=== PATIENT | female | born 1995 | race Caucasian/White ===

== ENCOUNTER 2017-07-18 14:20 | Inpatient (IN) | payer MEDICAID ==
[2017-07-18] MEDS ORDERED: Sodium Chloride 0.9% 10 ML Syringe FLUSH PRN (15:23)
[2017-07-18] MEDS ORDERED: diphenhydrAMINE 50 MG/ML SDV IVPUSH ONE (16:56)
[2017-07-18] MEDS ORDERED: diphenhydrAMINE 50 MG/ML SDV ONE (16:58)
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
[2017-07-18] MEDS: Lactated Ringers 1,000 ML IV SCH ×4 (17:03→20:23)
[2017-07-18] MEDS ORDERED: diphenhydrAMINE 50 MG/ML SDV IVPUSH PRN (18:18)
[2017-07-18] MEDS ORDERED: fentaNYL 100 MCG/2 ML SDV EPIDUR PRN (18:18)
[2017-07-18] MEDS ORDERED: ePHEDrine 50 MG/ML SDV IVPUSH PRN (18:18)
[2017-07-18] MEDS ORDERED: Ondansetron 4 MG/2 ML SDV IVPUSH PRN (18:18)
[2017-07-18] MEDS: Bupivacaine/fentaNYL/NS 100 ML Bag EPIDUR SCH (18:52)
--- NOTE | 2017-07-18 19:01 | PCM.PREANE ---
Preanesthetic Assessment - Anesthesia/Transfusion/Family Hx Anesthesia History: Prior Anesthesia Without Reaction Family History of Anesthesia Reaction: No Transfusion History: No Prior Transfusion(s) - Review of Systems General: No Symptoms Pulmonary: No Symptoms Cardiovascular: No Symptoms Gastrointestinal: No Symptoms, Other (Heartburn mostly towards the end of the .) Neurological: No Symptoms Other: Reports: None - Physical Assessment O2 Sat by Pulse Oximetry: 98 Respiratory Rate: 16 Vital Signs: Last Vital Signs Temp 36.8 C 07/18/17 14:36 Pulse 85 07/18/17 14:36 Resp 16 07/18/17 14:36 BP 139/89 07/18/17 14:36 Pulse Ox Height: 1.78 m Weight: 86.409 kg ASA Class: 2 Mental Status: Alert & Oriented x3 Airway Class: Mallampati = 1 Dentition: Reports: Normal Dentition Thyro-Mental Finger Breadths: 3 Mouth Opening Finger Breadths: 3 ROM/Head Extension: Full Lungs: Clear to Auscultation, Normal Respiratory Effort Cardiovascular: Regular Rate, Regular Rhythm - Lab Values: Laboratory Last Values WBC 10.21 K/mm3 (3.98-10.04) H 07/18/17 15:50 RBC 3.91 M/mm3 (3.98-5.22) L 07/18/17 15:50 Hgb 10.8 gm/L (11.2-15.7) L 07/18/17 15:50 Hct 34.2 % (34.1-44.9) 07/18/17 15:50 MCV 87.5 fl (79.4-94.8) 07/18/17 15:50 MCH 27.6 pg (25.6-32.2) 07/18/17 15:50 MCHC 31.6 g/dl (32.2-35.5) L 07/18/17 15:50 RDW Std Deviation 47.8 fL (36.4-46.3) H 07/18/17 15:50 Plt Count 259 K/mm3 (182-369) 07/18/17 15:50 MPV 10.1 fl (9.4-12.3) 07/18/17 15:50 Neut % (Auto) 67.7 % (34.0-71.1) 07/18/17 15:50 Lymph % (Auto) 18.8 % (19.3-51.7) L 07/18/17 15:50 [place] % (Auto) 11.3 % (4.7-12.5) 07/18/17 15:50 Eos % (Auto) 1.7 (0.7-5.8) 07/18/17 15:50 Baso % (Auto) 0.3 % (0.1-1.2) 07/18/17 15:50 Neut # (Auto) 6.92 K/mm3 (1.56-6.13) H 07/18/17 15:50 Lymph # (Auto) 1.92 K/mm3 (1.18-3.74) 07/18/17 15:50 [place] # (Auto) 1.15 K/mm3 (0.24-0.36) H 07/18/17 15:50 Eos # (Auto) 0.17 K/mm3 (0.04-0.36) 07/18/17 15:50 Baso # (Auto) 0.03 K/mm3 (0.01-0.08) 07/18/17 15:50 Membrane Rupture Positive H 07/18/17 14:45 Blood Type O POSITIVE 07/18/17 15:50 Gel Antibody Screen Negative 07/18/17 15:50 - Allergies Allergies/Adverse Reactions: Allergies Allergy/AdvReac Type Severity Reaction Status Date / Time Penicillins Allergy Hives Verified 07/18/17 14:52 Vancomycin Allergy Intermediate Rash Uncoded 07/18/17 17:01 - Acknowledgements Anesthesia Type Planned: Epidural Pt an Appropriate Candidate for the Planned Anesthesia: Yes Alternatives and Risks of Anesthesia Discussed w Pt/Guardian: Yes Pt/Guardian Understands and Agrees with Anesthesia Plan: Yes PreAnesthesia Questionnaire - Past Health History Medical/Surgical History: Denies Medical/Surgical History Genitourinary History: Reports: Renal Calculus, Other (See Below) Other Genitourinary History: Renal stents placed 04/10 and 05/08 and since removed. Urerter surgery as a child. 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 [No Known Home Meds] 04/13/16 [History] - CURRENT (IN HOUSE) MEDS Current Meds: Current Medications Diphenhydramine HCl (Benadryl) 25 mg IVPUSH Q6H PRN PRN Reason: Pruritis Ephedrine Sulfate (Ephedrine Sulfate) 5 mg IVPUSH ASDIRECTED PRN PRN Reason: Hypotension Fentanyl (Sublimaze) 100 mcg EPIDUR ONETIME PRN PRN Reason: Pain Last Admin: 07/18/17 18:53 Dose: 100 mcg Fentanyl/Bupivacaine HCl (Fentanyl/Bupivacaine/Ns 2 Mcg-0.125% 100 Ml) 100 ml EPIDUR ASDIRECTED DORA Last Admin: 07/18/17 18:52 Dose: 100 ml Lactated Ringer's (Ringers, Lactated) 1,000 mls @ 100 mls/hr IV ASDIRECTED DORA Last Admin: 07/18/17 18:11 Dose: 100 mls/hr Oxytocin 20 unit/ Lactated (Ringer's) 1,002 mls @ 500 mls/hr IV TITRATE DORA; Protocol Vancomycin HCl 1 gm/ Sodium (Chloride) 250 mls @ 250 mls/hr IV Q12H DOAR Last Admin: 07/18/17 15:57 Dose: 250 mls/hr Ondansetron HCl (Zofran) 4 mg IVPUSH ONETIME PRN PRN Reason: Nausea/Vomiting Sodium Chloride (Saline Flush) 10 ml FLUSH ASDIRECTED PRN PRN Reason: Keep Vein Open Discontinued Medications Diphenhydramine HCl (Benadryl) 25 mg IVPUSH ONETIME ONE Stop: 07/18/17 16:57 Last Admin: 07/18/17 17:00 Dose: 25 mg Diphenhydramine HCl (Benadryl) Confirm Administered Dose 50 mg .ROUTE .STK-MED ONE Stop: 07/18/17 16:59
--- NOTE | 2017-07-18 20:19 | PCM.PNLD ---
Labor Progress Note - VS & Meds Vital Signs: Last Vital Signs Temp 36.8 C 07/18/17 14:36 Pulse 85 07/18/17 14:36 Resp 16 07/18/17 19:01 BP 139/89 07/18/17 14:36 Pulse Ox 98 07/18/17 19:01 Active Medications: Current Medications Diphenhydramine HCl (Benadryl) 25 mg IVPUSH Q6H PRN PRN Reason: Pruritis Ephedrine Sulfate (Ephedrine Sulfate) 5 mg IVPUSH ASDIRECTED PRN PRN Reason: Hypotension Fentanyl (Sublimaze) 100 mcg EPIDUR ONETIME PRN PRN Reason: Pain Last Admin: 07/18/17 18:53 Dose: 100 mcg Fentanyl/Bupivacaine HCl (Fentanyl/Bupivacaine/Ns 2 Mcg-0.125% 100 Ml) 100 ml EPIDUR ASDIRECTED DORA Last Admin: 07/18/17 18:52 Dose: 100 ml Lactated Ringer's (Ringers, Lactated) 1,000 mls @ 100 mls/hr IV ASDIRECTED DORA Last Admin: 07/18/17 18:11 Dose: 100 mls/hr Oxytocin 20 unit/ Lactated (Ringer's) 1,002 mls @ 500 mls/hr IV TITRATE DORA; Protocol Vancomycin HCl 1 gm/ Sodium (Chloride) 250 mls @ 250 mls/hr IV Q12H DORA Last Admin: 07/18/17 15:57 Dose: 250 mls/hr Oxytocin 10 unit/ Lactated (Ringer's) 1,001 mls @ 12.01 mls/hr IV TITRATE DORA; Protocol Ondansetron HCl (Zofran) 4 mg IVPUSH ONETIME PRN PRN Reason: Nausea/Vomiting Sodium Chloride (Saline Flush) 10 ml FLUSH ASDIRECTED PRN PRN Reason: Keep Vein Open Discontinued Medications Diphenhydramine HCl (Benadryl) 25 mg IVPUSH ONETIME ONE Stop: 07/18/17 16:57 Last Admin: 07/18/17 17:00 Dose: 25 mg Diphenhydramine HCl (Benadryl) Confirm Administered Dose 50 mg .ROUTE .STK-MED ONE Stop: 07/18/17 16:59 - Uterine Contractions Contraction Frequency (min): 3 Contraction Duration (sec): 60 Contraction Intensity: Moderate to Strong Uterine Resting Tone: Soft - Monitoring Heart Rate (FHR) Per Doppler: 125 Heart Rate (FHR) Variability: Moderate (6-25 bmp) Accelerations: Present, 15x15 Strip Review: Category I - Vaginal Exam Dilation (cm): 3 Effacement (Percent): 80 Station: -2 Cervical Position: Midposition - Labor Progress (Free Text) Labor Progress: Minimal change. Epidural in place. Comfortable. Received sign out from Dr. Barron. Will assume care now. Will initiate pitocin. Anticipate .
[2017-07-19] MEDS: Bupivacaine/fentaNYL/NS 100 ML Bag EPIDUR SCH (01:07)
[2017-07-19] MEDS: Lactated Ringers 1,000 ML IV SCH ×2 (01:31→06:13)
[2017-07-19] MEDS ORDERED: Bupivacaine 0.25% 10 ML SDV ONE (02:00)
[2017-07-19] MEDS ORDERED: fentaNYL 100 MCG/2 ML SDV ONE (04:40)
--- NOTE | 2017-07-19 06:15 | PCM.PNLD ---
Labor Progress Note - VS & Meds Vital Signs: Last Vital Signs Temp 36.8 C 07/18/17 14:36 Pulse 85 07/18/17 14:36 Resp 16 07/18/17 19:01 BP 139/89 07/18/17 14:36 Pulse Ox 98 07/18/17 19:01 Active Medications: Current Medications Diphenhydramine HCl (Benadryl) 25 mg IVPUSH Q6H PRN PRN Reason: Pruritis Last Admin: 07/19/17 05:27 Dose: 25 mg Ephedrine Sulfate (Ephedrine Sulfate) 5 mg IVPUSH ASDIRECTED PRN PRN Reason: Hypotension Fentanyl (Sublimaze) 100 mcg EPIDUR ONETIME PRN PRN Reason: Pain Last Admin: 07/18/17 18:53 Dose: 100 mcg Fentanyl/Bupivacaine HCl (Fentanyl/Bupivacaine/Ns 2 Mcg-0.125% 100 Ml) 100 ml EPIDUR ASDIRECTED DORA Last Admin: 07/19/17 01:07 Dose: 100 ml Lactated Ringer's (Ringers, Lactated) 1,000 mls @ 100 mls/hr IV ASDIRECTED DORA Last Admin: 07/19/17 06:13 Dose: 100 mls/hr Oxytocin 20 unit/ Lactated (Ringer's) 1,002 mls @ 500 mls/hr IV TITRATE DORA; Protocol Vancomycin HCl 1 gm/ Sodium (Chloride) 250 mls @ 250 mls/hr IV Q12H DORA Last Admin: 07/19/17 03:46 Dose: 175 mls/hr Oxytocin 10 unit/ Lactated (Ringer's) 1,001 mls @ 12.01 mls/hr IV TITRATE DORA; Protocol Last Titration: 07/19/17 02:16 Dose: 14 munits/min, 84.08 mls/hr Ondansetron HCl (Zofran) 4 mg IVPUSH ONETIME PRN PRN Reason: Nausea/Vomiting Sodium Chloride (Saline Flush) 10 ml FLUSH ASDIRECTED PRN PRN Reason: Keep Vein Open Discontinued Medications Diphenhydramine HCl (Benadryl) 25 mg IVPUSH ONETIME ONE Stop: 07/18/17 16:57 Last Admin: 07/18/17 17:00 Dose: 25 mg Diphenhydramine HCl (Benadryl) Confirm Administered Dose 50 mg .ROUTE .STK-MED ONE Stop: 07/18/17 16:59 Fentanyl (Sublimaze) Confirm Administered Dose 100 mcg .ROUTE .STK-MED ONE Stop: 07/19/17 04:41 Last Admin: 07/19/17 04:46 Dose: 100 mcg - Uterine Contractions Contraction Frequency (min): 3 Contraction Duration (sec): 60 Contraction Intensity: Moderate to Strong Uterine Resting Tone: Soft - Monitoring Heart Rate (FHR) Per Doppler: 125 Heart Rate (FHR) Variability: Moderate (6-25 bmp) Accelerations: Present, 15x15 Strip Review: Category I - Vaginal Exam Dilation (cm): 9.5 Effacement (Percent): 100 Station: -1 Cervical Position: Midposition Vaginal Exam Comment: Anterior rim of cervix still present and thick. Attempt to push by this unsuccessful. - Labor Progress (Free Text) Labor Progress: Continued progress. Anticipate complete soon and begin pushing.
[2017-07-19] MEDS ORDERED: Benzocaine/Menthol 20%-0.5% Spray 56 GM Canister TOP PRN (07:43)
[2017-07-19] MEDS ORDERED: Hydrocortisone Acetate 25 MG Supp RECTAL PRN (07:43)
[2017-07-19] MEDS ORDERED: Witch Hazel Medicated Pads 100/Jar TOP PRN (07:43)
[2017-07-19] MEDS ORDERED: Acetaminophen 325 MG Tab PO PRN (07:43)
--- NOTE | 2017-07-19 07:43 | PCM.SN ---
- Free Text/Narrative Note: Stage I - patient presented in active labor with SROM. Augmented with pitocin. Epidural for anesthesia. Progressed to complete with overall reassuring heart tones. Stage II - of viable male, weight 7#0oz, 8/9 APGARS at 0724. Head delivered in controlled manner over intact perineum. Body and shoulders followed atraumatically. Vigorous cry. Cord clamped and cut after 60 seconds. Cord blood collected. Stage III - of intact placenta. 3VC. Minimal bleeding. EBL 250. Vagina inspected and intact. No lacerations.
[2017-07-19] MEDS: Ibuprofen 600 MG Tab PO PRN ×2 (07:58→20:40)
[2017-07-20] MEDS: Ibuprofen 600 MG Tab PO PRN ×2 (02:18→12:35)
--- NOTE | 2017-07-20 07:07 | PCM.DCSUM1 ---
Discharge Summary - Hospital Course Brief History: Admitted with srom. Epidural. Pitocin augmentation. Uncomplicated on 07-19-17 - Discharge Data Discharge Date: 07/20/17 Discharge Disposition: Home, Self-Care 01 Condition: Good - Patient Instructions Diet: Usual Diet as Tolerated Activity: No Strenuous Activities Activity, Other: pelvic rest Driving: May Drive Today Showering/Bathing: May Shower Wound/Incision Care: Keep Operative Site/Wound Site Clean and Dry Notify Provider of: Fever, Increased Pain, Swelling and Redness, Drainage, Nausea and/or Vomiting - Discharge Plan Home Medications: Home Meds . [No Known Home Meds] 04/13/16 [History] Referrals: Violet Bolton MD [Primary Care Provider] - (2-6 weeks) - Discharge Summary/Plan Comment DC Time >30 min.: No - Patient Data Vitals - Most Recent: Last Vital Signs Temp 36.8 C 07/20/17 03:38 Pulse 71 07/20/17 03:38 Resp 16 07/20/17 03:38 BP 106/66 07/20/17 03:38 Pulse Ox 98 07/20/17 03:38 Weight - Most Recent: 86.409 kg I&O - Last 24 hours: Intake & Output 07/19/17 07/20/17 07/20/17 22:59 06:59 14:59 Intake Total 60 Balance 60 Med Orders - Current: Current Medications Acetaminophen (Tylenol) 650 mg PO Q4H PRN PRN Reason: mild pain or fever Last Admin: 07/20/17 05:17 Dose: 650 mg Benzocaine/Menthol (Dermoplast Pain Relief [place]) 0 gm TOP ASDIRECTED PRN PRN Reason: Perineal Comfort Measure Hydrocortisone Acetate (Anucort-Hc) 25 mg RECTAL BID PRN PRN Reason: Hemorrhoid pain Ibuprofen (Motrin) 600 mg PO Q6H PRN PRN Reason: Mild pain or fever Last Admin: 07/20/17 02:18 Dose: 600 mg Witch Lulú (Tucks) 1 pad TOP ASDIRECTED PRN PRN Reason: Hemorrhoid pain Discontinued Medications Bupivacaine HCl (Sensorcaine-Mpf 0.25%) 10 ml .ROUTE .STK-MED ONE Stop: 07/19/17 02:01 Diphenhydramine HCl (Benadryl) 25 mg IVPUSH ONETIME ONE Stop: 07/18/17 16:57 Last Admin: 07/18/17 17:00 Dose: 25 mg Diphenhydramine HCl (Benadryl) Confirm Administered Dose 50 mg .ROUTE .STK-MED ONE Stop: 07/18/17 16:59 Diphenhydramine HCl (Benadryl) 25 mg IVPUSH Q6H PRN PRN Reason: Pruritis Last Admin: 07/19/17 05:27 Dose: 25 mg Ephedrine Sulfate (Ephedrine Sulfate) 5 mg IVPUSH ASDIRECTED PRN PRN Reason: Hypotension Fentanyl (Sublimaze) 100 mcg EPIDUR ONETIME PRN PRN Reason: Pain Last Admin: 07/18/17 18:53 Dose: 100 mcg Fentanyl (Sublimaze) Confirm Administered Dose 100 mcg .ROUTE .[email or web address] ONE Stop: 07/19/17 04:41 Last Admin: 07/19/17 04:46 Dose: 100 mcg Fentanyl/Bupivacaine HCl (Fentanyl/Bupivacaine/Ns 2 Mcg-0.125% 100 Ml) 100 ml EPIDUR ASDIRECTED DORA Last Admin: 07/19/17 01:07 Dose: 100 ml Lactated Ringer's (Ringers, Lactated) 1,000 mls @ 100 mls/hr IV ASDIRECTED DORA Last Admin: 07/19/17 06:13 Dose: 100 mls/hr Oxytocin 20 unit/ Lactated (Ringer's) 1,002 mls @ 500 mls/hr IV TITRATE DORA; Protocol Vancomycin HCl 1 gm/ Sodium (Chloride) 250 mls @ 250 mls/hr IV Q12H DORA Last Admin: 07/19/17 03:46 Dose: 175 mls/hr Oxytocin 10 unit/ Lactated (Ringer's) 1,001 mls @ 12.01 mls/hr IV TITRATE DORA; Protocol Last Admin: 07/19/17 08:02 Dose: 500 mls/hr Ondansetron HCl (Zofran) 4 mg IVPUSH ONETIME PRN PRN Reason: Nausea/Vomiting Sodium Chloride (Saline Flush) 10 ml FLUSH ASDIRECTED PRN PRN Reason: Keep Vein Open
--- NOTE | 2017-07-20 07:46 | PCM48HPAN ---
Post Anesthesia Note - EVALUATION WITHIN 48HRS OF ANESTHETIC Vital Signs in Normal Range: Yes Patient Participated in Evaluation: Yes Respiratory Function Stable: Yes Airway Patent: Yes Cardiovascular Function Stable: Yes Hydration Status Stable: Yes Pain Control Satisfactory: Yes Nausea and Vomiting Control Satisfactory: Yes Mental Status Recovered: Yes Pulse Rate: 71 Resp Rate: 16 Temperature: 36.8 C Blood Pressure: 106/66 - COMMENTS/OBSERVATIONS Free Text/Narrative:: no anesthesia complications noted
[2017-07-20 14:18] VITALS: BP 110/59
== END 2017-07-20 14:35 | disposition home or self-care (01) | DRG 775 ==
LOC: JD.OBCHECK 14:20 → JD.OB 14:20 → JD.OBCHECK 15:24 → JD.OB 07-19 07:24 → OBSVTOIN 07-19 07:24
PROVIDERS: ADMIT Obstetrics & Gynecology; ATTEND Obstetrics & Gynecology
PROC: 10E0XZZ Delivery of Products of Conception, External Approach (ICD-10-PCS; principal; 2017-07-19)
PROC: 6A550ZT Pheresis of Cord Blood Stem Cells, Single (ICD-10-PCS; 2017-07-19)
PROC: 00HU33Z Insertion of Infusion Device into Spinal Canal, Percutaneous Approach (ICD-10-PCS; 2017-07-19)
PROC: 3E0R3BZ Introduction of Anesthetic Agent into Spinal Canal, Percutaneous Approach (ICD-10-PCS; 2017-07-19)
DX: O99.824 Streptococcus B carrier state complicating childbirth (principal); O99.354 Diseases of the nervous system complicating childbirth; Z3A.39 39 weeks gestation of pregnancy; Z37.0 Single live birth; G43.909 Migraine, unspecified, not intractable, without status migrainosus; Z88.0 Allergy status to penicillin; Z87.442 Personal history of urinary calculi; Z87.440 Personal history of urinary (tract) infections
CPT/HCPCS: 36415; 51702; 59025; 59409; 84112; 85025; 86850; 86900; 86901; 87210; 87808; A9270-GY; J1200; J2590; J3010; J3370; J7050; J7120

== ENCOUNTER 2018-03-12 11:40 | Emergency (ER) | payer SELFPAY ==
[2018-03-12 11:56] VITALS: BP 126/91
[2018-03-12] MEDS ORDERED: Sodium Chloride 0.9% 10 ML Syringe FLUSH PRN (12:12)
[2018-03-12] MEDS ORDERED: Ondansetron 4 MG/2 ML SDV IVPUSH ONE (12:12)
[2018-03-12] MEDS ORDERED: Sodium Chloride 0.9% 1,000 ML IV ONE (12:12)
[2018-03-12] MEDS ORDERED: Ketorolac 30 MG/ML SDV IVPUSH ONE (12:12)
--- NOTE | 2018-03-12 12:16 | EDM.PDOC ---
ED HPI GENERAL MEDICAL PROBLEM - General Chief Complaint: General Stated Complaint: FEVER AND COLD STYMPTOMS Time Seen by Provider: 03/12/18 11:59 Source of Information: Reports: Patient History Limitations: Reports: No Limitations - History of Present Illness INITIAL COMMENTS - FREE TEXT/NARRATIVE: Patient is a 22-year-old female presents ED complaining of headache, fever, and vomiting the last 4 days. Patient states she's had some sinus congestion, mild sore throat, postnasal drip, with chest congestion and mild cough. She states her child was recently diagnosed with influenza a 2 days ago. Patient has not received a flu vaccination. She has been taking Tylenol on intermittent basis for the headache and fever. She does feel dizzy with standing with a dry mouth today. She's had no bloody emesis. Recent fever this morning 100.3 which technically is not a fever but close. She has not used any other medications for her symptoms. She does carry a history of asthma and is on albuterol. She denies being . Headache Pain Score (Numeric/FACES): 8 - Related Data Allergies Allergy/AdvReac Type Severity Reaction Status Date / Time Penicillins Allergy Hives Verified 03/12/18 11:51 Home Meds: Home Meds Ondansetron [Zofran ODT] 4 mg PO Q6H PRN #12 tab.dis 03/12/18 [Rx] Past Medical History - Past Health History Medical/Surgical History: Denies Medical/Surgical History Genitourinary History: Reports: Renal Calculus, Other (See Below) Other Genitourinary History: Renal stents placed 04/10 and 05/08 and since removed. Urerter surgery as a child. 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 History: Reports: Migraines Psychiatric History: Reports: Anxiety, Panic Attack - Infectious Disease History Infectious Disease History: Reports: Chicken Pox - Past Surgical History HEENT Surgical History: Reports: Oral Surgery Social & Family History - Family History Family Medical History: Noncontributory Respiratory: Reports: COPD Other Respiratory Family Hisory: Paternal Grandmother : Reports: UTI, Recurrent Other Family History: Mother Neurological: Reports: Migraines Other Neurological Family History: Mother - Tobacco Use Smoking Status *Q: Never Smoker Second Hand Smoke Exposure: No - Caffeine Use Caffeine Use: Reports: Coffee - Recreational Drug Use Recreational Drug Use: No ED ROS GENERAL - Review of Systems Review Of Systems: ROS reveals no pertinent complaints other than HPI. ED EXAM, GENERAL - Physical Exam Exam: See Below Exam Limited By: No Limitations General Appearance: Alert, WD/WN, No Apparent Distress Eye Exam: Bilateral Eye: Normal Inspection, Nystagmus (none noted), PERRL, Vision Changes (none noted) Ears: Normal External Exam, Normal Canal, Hearing Grossly Normal, Normal TMs Nose: Normal Inspection, Nasal Tenderness, Nasal Swelling, Nasal Drainage, Clear Rhinorrhea Throat/Mouth: Normal Inspection, Normal Voice, No Airway Compromise, Other ( Mildly dry oral mucosa with postnasal drip present. No erythema, exudates, or swelling to the posterior pharynx.) Head: Atraumatic, Normocephalic Neck: Normal Inspection, Supple, Non-Tender, Full Range of Motion Respiratory/Chest: No Respiratory Distress, Lungs Clear, Normal Breath Sounds, No Accessory Muscle Use, Chest Non-Tender Cardiovascular: Normal Peripheral Pulses, Regular Rate, Rhythm, No Murmur Peripheral Pulses: 2+: Radial (L) GI/Abdominal: Normal Bowel Sounds, Soft, Non-Tender, No Organomegaly, No Distention Back Exam: Normal Inspection. No: CVA Tenderness (L), CVA Tenderness (R) Extremities: Normal Inspection, Non-Tender, No Pedal Edema Neurological: Alert, Oriented, CN II-XII Intact, Normal Cognition Psychiatric: Normal Affect, Normal Mood Skin Exam: Warm, Dry, Intact, Normal Color, No Rash Course - Vital Signs Last Recorded V/S: Last Vital Signs Temp 98.6 F 03/12/18 11:52 Pulse 82 03/12/18 11:52 Resp 15 03/12/18 11:52 BP 126/91 H 03/12/18 11:52 Pulse Ox 100 03/12/18 11:52 - Orders/Labs/Meds Orders: Active Orders 24 hr Category Date Time Status Peripheral IV Care [RC] . DIRECTED Care 03/12/18 12:12 Active Peripheral IV Insertion Adult [OM.PC] Routine Oth 03/12/18 12:12 Ordered Labs: Laboratory Tests 03/12/18 03/12/18 Range/Units 12:15 12:15 WBC 8.86 (3.98-10.04) K/mm3 RBC 5.36 H (3.98-5.22) M/mm3 Hgb 15.4 (11.2-15.7) gm/L Hct 47.8 H (34.1-44.9) % MCV 89.2 (79.4-94.8) fl MCH 28.7 (25.6-32.2) pg MCHC 32.2 (32.2-35.5) g/dl RDW Std Deviation 43.9 (36.4-46.3) fL Plt Count 231 (182-369) K/mm3 MPV 10.3 (9.4-12.3) fl Neutrophils % (Manual) 72 H (40-60) % Band Neutrophils % 1 (0-10) % Lymphocytes % (Manual) 15 L (20-40) % Atypical Lymphs % 0 % Monocytes % (Manual) 10 (2-10) % Eosinophils % (Manual) 2 (0.7-5.8) % Basophils % (Manual) 0 L (0.1-1.2) Platelet Estimate Adequate Plt Morphology Comment Normal RBC Morph Comment Normal Sodium 139 (136-145) mEq/L Potassium 4.4 (3.5-5.1) mEq/L Chloride 104 (98-107) mEq/L Carbon Dioxide 28 (21-32) mEq/L Anion Gap 11.4 (5-15) BUN 11 (7-18) mg/dL Creatinine 0.9 (0.55-1.02) mg/dL Est Cr Clr Drug Dosing 104.23 mL/min Estimated GFR (MDRD) > 60 (>60) mL/min BUN/Creatinine Ratio 12.2 L (14-18) Glucose 94 (74-106) mg/dL Calcium 9.3 (8.5-10.1) mg/dL Total Bilirubin 1.2 H (0.2-1.0) mg/dL AST 14 L (15-37) U/L ALT 28 (14-59) U/L Alkaline Phosphatase 102 (46-116) U/L Total Protein 8.3 H (6.4-8.2) g/dl Albumin 4.2 (3.4-5.0) g/dl Globulin 4.1 gm/dL Albumin/Globulin Ratio 1.0 (1-2) Meds: Medications Discontinued Medications Generic Name Dose Route Start Last Admin Trade Name Freq PRN Reason Stop Dose Admin Acetaminophen 975 mg 03/12/18 13:09 03/12/18 13:15 Tylenol PO 03/12/18 13:10 975 mg NOW ONE Administration Sodium Chloride 1,000 mls @ 999 mls/hr 03/12/18 12:12 03/12/18 12:18 Normal Saline IV 03/12/18 13:12 999 mls/hr ONETIME ONE Administration Ketorolac Tromethamine 30 mg 03/12/18 12:12 03/12/18 12:19 Toradol IVPUSH 03/12/18 12:13 30 mg ONETIME ONE Administration Ondansetron HCl 4 mg 03/12/18 12:12 03/12/18 12:19 Zofran IVPUSH 03/12/18 12:13 4 mg ONETIME ONE Administration Sodium Chloride 10 ml 03/12/18 12:12 03/12/18 12:18 Saline Flush FLUSH 10 ml ASDIRECTED PRN Administration Keep Vein Open - Re-Assessments/Exams Free Text/Narrative Re-Assessment/Exam: Patient does feel dizzy with standing and notes having a dry mouth. She's had poor oral intake over the last few days to the repetitious vomiting. I have opted to start a IV although orthostatic vital signs are negative. IV will be established with normal saline 1 L bolus, Toradol 30 mg IV, and Zofran 4 mg IV. Basic labs including CBC and a chem panel be obtained. I suspect patient has influenza a since child was recently diagnosed. Unfortunately patient is outside the window of treating with Tamiflu. Symptomatic care from here on out is appropriate. Suspect symptoms should resolve the next few days. Labs reviewed: Unremarkable. 1308 per nursing staff patient states headache has not improved with the above therapy. I ordered Tylenol 975 mg by mouth. No narcotics will be provided. She does not appear to be toxic in appearance. 1333 IVF's have completed. Patient is feeling better although headache has not completely resolved. Patient will be discharged home with instructions as documented. Return precautions discussed with patient. Departure - Departure Time of Disposition: 13:34 Disposition: Home, Self-Care 01 Clinical Impression: Viral upper respiratory tract infection Nausea & vomiting Qualifiers: Vomiting type: unspecified Vomiting Intractability: non-intractable Qualified Code(s): R11.2 - Nausea with vomiting, unspecified - Discharge Information Prescriptions: Ondansetron [Zofran ODT] 4 mg PO Q6H PRN #12 tab.dis PRN Reason: Nausea/Vomiting Instructions: Viral Respiratory Infection, [id number], Nausea and Vomiting, Adult, [id number] Referrals: PCP,None [Primary Care Provider] - Forms: ED Department Discharge, ED Return to Work/School Form Additional Instructions: Take the Zofran as prescribed for nausea and vomiting. Push the fluids. Utilize Tylenol and ibuprofen for fever and headache discomfort. Suspect you have influenza A. Unable to start Tamiflu due to onset of symptoms being greater than 48 hours ago. Symptoms should resolve in the next few days. Follow-up with PCP as needed this coming week. Return to the ED if you develop any new or worsening symptoms. - My Orders Last 24 Hours: My Active Orders 03/12/18 12:12 Peripheral IV Care [RC] . DIRECTED Peripheral IV Insertion Adult [OM.PC] Routine - Assessment/Plan Last 24 Hours: My Active Orders 03/12/18 12:12 Peripheral IV Care [RC] . DIRECTED Peripheral IV Insertion Adult [OM.PC] Routine
[2018-03-12] MEDS ORDERED: Acetaminophen 325 MG Tab PO ONE (13:09)
== END 2018-03-12 13:45 | disposition home or self-care (01) ==
LOC: JD.ED 11:40
DX: J06.9 Acute upper respiratory infection, unspecified (principal); R11.2 Nausea with vomiting, unspecified; Z88.0 Allergy status to penicillin
CPT/HCPCS: 36415; 80053; 85007; 85027; 96361; 96374; 96375; 99283; A9270; J1885; J2405; J7040

== ENCOUNTER 2018-07-25 20:05 | Emergency (ER) | payer SELFPAY ==
[2018-07-25 20:13] VITALS: BP 130/84
[2018-07-25] MEDS ORDERED: Ketorolac 60 MG/2 ML SDV IM ONE (20:47)
--- NOTE | 2018-07-25 21:50 | EDM.PDOC ---
ED HPI GENERAL MEDICAL PROBLEM - General Chief Complaint: Upper Extremity Injury/Pain Stated Complaint: HAND INJURY Time Seen by Provider: 07/25/18 20:39 Source of Information: Reports: Patient History Limitations: Reports: No Limitations - History of Present Illness INITIAL COMMENTS - FREE TEXT/NARRATIVE: 22-year-old female presents for an evaluation and treatment of injury to the right hand. Patient fell down the stairs approximately 2 hours prior to arrival in the ER. Reports she was carrying her 1-year-old son. States that she landed on the dorsal aspect of her hand. She is primarily complaining of pain to the fourth and fifth MCPs as well as the third PIP. She has swelling and bruising to these areas. Reports pain with range of motion. She is not taking any medications prior to arrival for the pain. Patient is right-handed. Onset: Today Location: Reports: Upper Extremity, Right Right Hand Pain Score (Numeric/FACES): 10 - Related Data Allergies Allergy/AdvReac Type Severity Reaction Status Date / Time Penicillins Allergy Hives Verified 07/25/18 20:10 Home Meds: Home Meds . [No Known Home Meds] 07/25/18 [History] Past Medical History - Past Health History Medical/Surgical History: Denies Medical/Surgical History Genitourinary History: Reports: Renal Calculus, Other (See Below) Other Genitourinary History: Renal stents placed 04/10 and 05/08 and since removed. Urerter surgery as a child. 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: Neurological History: Reports: Migraines Psychiatric History: Reports: Anxiety, Panic Attack - Infectious Disease History Infectious Disease History: Reports: Chicken Pox - Past Surgical History HEENT Surgical History: Reports: Oral Surgery Social & Family History - Family History Family Medical History: Noncontributory Respiratory: Reports: COPD Other Respiratory Family Hisory: Paternal Grandmother : Reports: UTI, Recurrent Other Family History: Mother Neurological: Reports: Migraines Other Neurological Family History: Mother - Tobacco Use Smoking Status *Q: Never Smoker - Caffeine Use Caffeine Use: Reports: Coffee - Recreational Drug Use Recreational Drug Use: No Review of Systems - Review of Systems Review Of Systems: See Below Musculoskeletal: Reports: Hand Pain (right) Skin: Reports: Bruising (4th and 5th metacarpals, 3rd finger PIP) Neurological: Denies: Numbness, Tingling ED EXAM, GENERAL - Physical Exam Exam: See Below Exam Limited By: No Limitations General Appearance: Alert, WD/WN, No Apparent Distress Respiratory/Chest: No Respiratory Distress Cardiovascular: Normal Peripheral Pulses Peripheral Pulses: 2+: Radial (R) Extremities: Normal Capillary Refill, Limited Range of Motion (due to pain to the 3rd, 4th and 5th fingers), Other (swelling and bruising to the 3rd finger PIP and 4th and 5th MCP joints) Neurological: Alert, Oriented, Normal Cognition Psychiatric: Normal Affect, Normal Mood Skin Exam: Warm, Dry, Normal Color Course - Vital Signs Last Recorded V/S: Last Vital Signs Temp 98.4 F 07/25/18 20:11 Pulse 82 07/25/18 20:11 Resp 18 07/25/18 20:11 BP 130/84 07/25/18 20:11 Pulse Ox 98 07/25/18 20:11 - Orders/Labs/Meds Orders: Active Orders 24 hr Category Date Time Status Hand Comp Min 3V Rt [CR] Stat Exams 07/25/18 20:26 Taken Meds: Medications Discontinued Medications Generic Name Dose Route Start Last Admin Trade Name Parmjit PRN Reason Stop Dose Admin Ketorolac Tromethamine 60 mg 07/25/18 20:47 07/25/18 20:53 Toradol IM 07/25/18 20:48 60 mg ONETIME ONE Administration - Radiology Interpretation Free Text/Narrative:: X-ray of the right hand shows no acute fractures or dislocations. Formal radiology read pending. - Re-Assessments/Exams Free Text/Narrative Re-Assessment/Exam: 07/25/18 21:50 Xray results reviewed with te patient. Will discharge home at this time. Discharge instructions as documented. Departure - Departure Time of Disposition: 21:51 Disposition: Home, Self-Care 01 Condition: Good Clinical Impression: Ecchymosis, Hand injury - Discharge Information *PRESCRIPTION DRUG MONITORING PROGRAM REVIEWED*: No *COPY OF PRESCRIPTION DRUG MONITORING REPORT IN PATIENT NURY: No Instructions: RICE Therapy for Routine Care of Injuries, [id number], Hand Pain Referrals: PCP,None [Primary Care Provider] - Forms: ED Department Discharge Additional Instructions: Splint as needed for your discomfort. Ice the area as tolerated. Elevate as much as possible. OTC tylenol or motrin as needed for pain relief. Follow-up in clinic if symptoms have not improved in 7-10 days. At the [facility] recommend Miryam Angeles or Dr. Castillo. call [phone] to schedule with one of these provider.s Please return to the ER should your symptoms change or worsen. - My Orders Last 24 Hours: My Active Orders 07/25/18 20:26 Hand Comp Min 3V Rt [CR] Stat - Assessment/Plan Last 24 Hours: My Active Orders 07/25/18 20:26 Hand Comp Min 3V Rt [CR] Stat
--- NOTE | 2018-07-26 09:35 | CR ---
Right hand: Four views of the right hand were obtained. Comparison: No previous exam. Joint spaces are maintained. No fracture, dislocation or other bony abnormality is seen. Impression: 1. No abnormality is identified on right hand exam. Diagnostic code #1
== END 2018-07-25 22:00 | disposition home or self-care (01) ==
LOC: JD.ED 20:05
DX: S60.221A Contusion of right hand, initial encounter (principal); W10.9XXA Fall (on) (from) unspecified stairs and steps, initial encounter; Z88.0 Allergy status to penicillin
CPT/HCPCS: 73130; 99283; J1885